=== PATIENT | female | born 1970 | race Caucasian/White ===

== ENCOUNTER 2023-04-13 19:17 | Emergency (ER) | payer BC ==
[2023-04-13] MEDS ORDERED: Lidocaine 4% 1 each Patch TOP PRN (22:57)
[2023-04-13] MEDS ORDERED: Cyclobenzaprine 10 MG Tab PO ONE (22:58)
== END 2023-04-13 23:31 | disposition home or self-care (01) ==
LOC: MW.ED 19:17
DX: M54.6 Pain in thoracic spine (principal); W10.9XXA Fall (on) (from) unspecified stairs and steps, initial encounter; Y93.01 Activity, walking, marching and hiking; Y92.009 Unspecified place in unspecified non-institutional (private) residence as the place of occurrence of the external cause
CPT/HCPCS: 72070; 72100; 99283; A9270

== ENCOUNTER 2024-10-28 05:30 | Emergency (ER) | payer BC ==
[2024-10-28] MEDS: Ketorolac 30 MG/ML SDV IM ONE (06:26)
[2024-10-28] MEDS: Diazepam 5 MG Tab PO ONE (06:26)
[2024-10-28] MEDS: Lidocaine 4% 1 each Patch TOP ONE (06:26)
== END 2024-10-28 08:41 | disposition home or self-care (01) ==
LOC: MW.ED 05:30
DX: M54.50 Low back pain, unspecified (principal); F17.210 Nicotine dependence, cigarettes, uncomplicated; Z88.8 Allergy status to other drugs, medicaments and biological substances
CPT/HCPCS: 96372; 99283; A9270; J1885